=== PATIENT | male | born 1935 | race Caucasian/White ===

== ENCOUNTER 2018-01-05 15:07 | Observation (INO) | payer OTHER ==
[~2018-01-05] VITALS: Ht 182.9 cm; Wt 100.5 kg
[2018-01-05 16:03] LABS: BASOPHIL (%) 0.3 % (0-1); EOSINOPHIL (%) 0.9 % (0-5); EOSINOPHIL COUNT 0.1 K/uL (0-0.3); HEMATOCRIT 41.4 % (38.0-50.0); HEMOGLOBIN 13.8 G/DL (12.5-16.6); IMMATURE GRANULOCYTE (%) 0.7 % (0.0-0.7); LYMPHOCYTE (%) 12.2 % (15-42); LYMPHOCYTE COUNT 1.4 K/uL (1.0-2.8); MCH 30.1 PG (29.0-34.0); MCHC 33.3 G/DL (30.0-36.0); MCV 90.2 FL (86-99); MONOCYTE (%) 8.6 % (3-12); NEUTROPHIL (%) 77.3 % (45-76); NEUTROPHIL COUNT 8.8 K/uL (1.8-6.4); PLATELET COUNT 329 K/uL (156-360); RBC DIS.WIDTH-CV 14.9 % (11.8-14.6); RBC DIS.WIDTH-SD 49.1 % (39-53); RED BLOOD COUNT 4.59 M/uL (4.00-5.50); WHITE BLOOD COUNT 11.4 K/uL (4.1-10.2)
[2018-01-05 16:10] LABS: INTER. NORMALIZED RATIO 2.3
[2018-01-05 16:12] LABS: CHLORIDE 103 mEq/L (99-109); POTASSIUM 4.5 mEq/L (3.7-5.4); SODIUM 139 mEq/L (136-147)
[2018-01-05 16:13] LABS: MAGNESIUM 2.2 mg/dL (1.3-2.7); PTT 37.1 SEC (25-37)
[2018-01-05 16:14] LABS: GLUCOSE 122 mg/dL (70-99)
[2018-01-05 16:18] LABS: CREATININE 1.2 mg/dL (0.6-1.3); GFR ESTIMATE (CALCULATED) > 59 mL/min/ (58.99-99999)
[2018-01-05 16:19] LABS: UREA NITROGEN (BUN) 29 mg/dL (9-23)
[2018-01-05 16:26] LABS: TROP-I INTERPRETATION NEGATIVE; TROPONIN-I < 0.01 ng/mL (0.0-0.30)
[2018-01-05 17:03] LABS: APPEARANCE CLOUDY ((CLEAR)); BILIRUBIN NEGATIVE; BLOOD LARGE; COLOR AMBER ((YELLOW)); GLUCOSE (STRIP) NEGATIVE; KETONES NEGATIVE; LEUKOCYTES LARGE; NITRITE NEGATIVE; PROTEIN (STRIP) 100; SPECIFIC GRAVITY 1.017 (1.000-1.030)
[2018-01-05 17:51] LABS: RED BLOOD CELLS TNTC /HPF (0-5); WHITE BLOOD CELLS TNTC /HPF (0-5)
[2018-01-05 17:52] LABS: EPITHELIAL CELLS NONE SEEN /HPF; MUCUS NONE SEEN /LPF; UCUL ADDED? YES
[2018-01-05] MEDS ORDERED: COLACE100 MG PO (19:52)
[2018-01-05] MEDS ORDERED: AMLODIPINE BESYL5 MG PO (19:52)
[2018-01-05] MEDS ORDERED: FLOMAX0.4 MG PO (19:52)
[2018-01-05] MEDS ORDERED: LISINOPRIL20 MG PO (19:53)
[2018-01-05] MEDS ORDERED: METFORMIN HCL500 MG PO (19:53)
[2018-01-05] MEDS ORDERED: AMARYL4 MG PO (19:53)
[2018-01-05] MEDS ORDERED: MIRALAX17 GM PO (19:53)
[2018-01-05] MEDS ORDERED: VITAMIN B-12500 MC5 SL (19:54)
[2018-01-05] MEDS ORDERED: DAILY VALUE1 EACH PO (19:54)
[2018-01-05] MEDS ORDERED: CATAPRES0.2 MG PO (19:54)
[2018-01-05] MEDS ORDERED: AMARYL2 MG PO (19:55)
[2018-01-05] MEDS ORDERED: COUMADIN5 MG PO (19:55)
[2018-01-05] MEDS ORDERED: LIPITOR80 MG PO (19:55)
[2018-01-05] MEDS ORDERED: PHILLIPS'400 MG/5 M PO (19:56)
[2018-01-05] MEDS ORDERED: DULCOLAX10 MG PR (19:56)
[2018-01-05] MEDS ORDERED: FLEET ENEMA-AD118 ML PR (19:56)
[2018-01-05] MEDS ORDERED: SINEMET 25-1001 EACH PO (19:57)
[2018-01-05] MEDS ORDERED: FLONASE16 G1 BOTH NARES (19:57)
[2018-01-05] MEDS ORDERED: TYLENOL EXTRA500 MG PO (19:58)
[2018-01-05 21:41] VITALS: BP 144/65
[2018-01-05 23:50] VITALS: BP 161/83
[2018-01-06] VITALS (7 sets, daily range): BP systolic 83–141; BP diastolic 46–65
[2018-01-06 05:52] LABS: INTER. NORMALIZED RATIO 2.4
[2018-01-06 05:53] LABS: BASOPHIL (%) 0.3 % (0-1); EOSINOPHIL (%) 1.7 % (0-5); EOSINOPHIL COUNT 0.2 K/uL (0-0.3); HEMATOCRIT 37.7 % (38.0-50.0); HEMOGLOBIN 12.1 G/DL (12.5-16.6); IMMATURE GRANULOCYTE (%) 0.6 % (0.0-0.7); LYMPHOCYTE (%) 20.1 % (15-42); LYMPHOCYTE COUNT 2.1 K/uL (1.0-2.8); MCH 29.3 PG (29.0-34.0); MCHC 32.1 G/DL (30.0-36.0); MCV 91.3 FL (86-99); MONOCYTE (%) 9.4 % (3-12); NEUTROPHIL (%) 67.9 % (45-76); PLATELET COUNT 312 K/uL (156-360); RBC DIS.WIDTH-SD 50.4 % (39-53); RED BLOOD COUNT 4.13 M/uL (4.00-5.50); WHITE BLOOD COUNT 10.3 K/uL (4.1-10.2)
[2018-01-06 06:12] LABS: CHLORIDE 105 MEQ/L (99-109); CREATININE 1.3 MG/DL (0.6-1.3); GFR ESTIMATE (CALCULATED) 56 mL/min/ (58.99-99999); GLUCOSE 128 mg/dL (70-99); POTASSIUM 4.6 MEQ/L (3.7-5.4); SODIUM 140 MEQ/L (136-147); UREA NITROGEN (BUN) 34 mg/dL (9-23)
[2018-01-07 03:32] VITALS: BP 104/52
[2018-01-07 06:26] LABS: INTER. NORMALIZED RATIO 3.4
[2018-01-07 07:46] VITALS: BP 134/63
[2018-01-07 11:40] VITALS: BP 140/66
[2018-01-07 17:05] VITALS: BP 155/80
[2018-01-07 19:26] VITALS: BP 163/87
[2018-01-08 00:31] VITALS: BP 136/61
[2018-01-08 04:45] VITALS: BP 161/73
[2018-01-08 06:39] LABS: INTER. NORMALIZED RATIO 3.3
[2018-01-08 07:52] VITALS: BP 167/72
[2018-01-08 11:55] VITALS: BP 136/62
[2018-01-08 18:30] VITALS: BP 153/70
[2018-01-09 03:56] VITALS: BP 146/65
[2018-01-09 05:57] LABS: INTER. NORMALIZED RATIO 2.6
[2018-01-09 08:31] VITALS: BP 153/87
[2018-01-09 11:02] VITALS: BP 163/79
[2018-01-09] MEDS ORDERED: CEPHALEXIN500 M1 PO (14:55)
[2018-01-09 15:37] VITALS: BP 174/75
== END 2018-01-09 17:34 ==
LOC: EME 15:07 → EDOF 19:56 → 5WEST 19:56 → ENRESERV 20:00 → 5WEST 21:28
PROVIDERS: Emergency Medicine; Internal Medicine; Physician Assistant
DX: N39.0 Urinary tract infection, site not specified (principal); G93.41 Metabolic encephalopathy; I69.354 Hemiplegia and hemiparesis following cerebral infarction affecting left non-dominant side; G20 Parkinson's disease; E11.9 Type 2 diabetes mellitus without complications; I25.10 Atherosclerotic heart disease of native coronary artery without angina pectoris; Z95.5 Presence of coronary angioplasty implant and graft; I10 Essential (primary) hypertension; E78.5 Hyperlipidemia, unspecified; N40.0 Benign prostatic hyperplasia without lower urinary tract symptoms; Z79.01 Long term (current) use of anticoagulants; Z79.84 Long term (current) use of oral hypoglycemic drugs
CPT/HCPCS: 70450; 80048; 80048 91; 81003; 82948; 83735; 84484; 85025; 85025 91; 85610; 85730; 87040; 87077; 87086; 87186; 93005; 99281; 99285; G0378; J0692; J1815; J2405; J7030

== ENCOUNTER 2018-04-19 21:09 | Inpatient (IN) | payer OTHER ==
[~2018-04-19] VITALS: Ht 2926.1 cm; Wt 93.2 kg
[~2018-04-19 21:09] MED LIST: AMARYL2 MG PO; AMARYL4 MG PO; AMLODIPINE BESYL5 MG PO; CATAPRES0.2 MG PO; CEPHALEXIN500 M1 PO; COLACE100 MG PO; COUMADIN5 MG PO; DAILY VALUE1 EACH PO; DULCOLAX10 MG PR; FLEET ENEMA-AD118 ML PR; FLOMAX0.4 MG PO; FLONASE16 G1 BOTH NARES; LIPITOR80 MG PO; LISINOPRIL20 MG PO; METFORMIN HCL500 MG PO; MIRALAX17 GM PO; PHILLIPS'400 MG/5 M PO; SINEMET 25-1001 EACH PO; TYLENOL REGULA325 MG PO; VITAMIN B-12500 MC5 SL
[2018-04-19 21:56] LABS: APPEARANCE CLOUDY ((CLEAR)); BILIRUBIN NEGATIVE; BLOOD SMALL; COLOR AMBER ((YELLOW)); GLUCOSE (STRIP) NEGATIVE; KETONES 5; LEUKOCYTES LARGE; NITRITE NEGATIVE; PROTEIN (STRIP) 30; SPECIFIC GRAVITY 1.018 (1.000-1.030); UROBILINOGEN 0.2 MG/DL (0.2-1.0)
[2018-04-19 22:14] LABS: BACTERIA 3+ /HPF; EPITHELIAL CELLS 2+ /HPF; MUCUS NONE SEEN /LPF; RED BLOOD CELLS 0-5 /HPF (0-5); UCUL ADDED? YES; WHITE BLOOD CELLS TNTC /HPF (0-5)
[2018-04-19 22:27] LABS: ALBUMIN 2.3 g/dL (3.2-4.8); CHLORIDE 116 mEq/L (99-109); POTASSIUM 3.3 mEq/L (3.7-5.4); SODIUM 152 mEq/L (136-147)
[2018-04-19 22:28] LABS: MAGNESIUM 1.9 mg/dL (1.3-2.7)
[2018-04-19 22:30] LABS: GLUCOSE 240 mg/dL (70-99); TOTAL PROTEIN 5.6 g/dL (6.4-8.3)
[2018-04-19 22:32] LABS: TOTAL BILIRUBIN 0.5 mg/dL (0.0-1.0)
[2018-04-19 22:33] LABS: ALKALINE PHOSPHATASE 136 IU/L (3-129); GFR ESTIMATE (CALCULATED) 21 mL/min/ (58.99-99999)
[2018-04-19 22:34] LABS: BASOPHIL (%) 0.3 % (0-1); BASOPHIL COUNT 0.1 K/uL (0-0.1); EOSINOPHIL (%) 0 % (0-5); HEMOGLOBIN 11.9 G/DL (12.5-16.6); IMMATURE GRANULOCYTE (%) 1.8 % (0.0-0.7); LYMPHOCYTE (%) 4.4 % (15-42); LYMPHOCYTE COUNT 1.5 K/uL (1.0-2.8); MCH 29.8 PG (29.0-34.0); MCHC 33.1 G/DL (30.0-36.0); MONOCYTE (%) 3.7 % (3-12); MONOCYTE COUNT 1.3 K/uL (0-0.8); NEUTROPHIL (%) 89.8 % (45-76); NEUTROPHIL COUNT 31.1 K/uL (1.8-6.4); NRBC (%) 0.1 /100 WBC (0-0); PLATELET COUNT 258 K/uL (156-360); RBC DIS.WIDTH-CV 16.2 % (11.8-14.6); RBC DIS.WIDTH-SD 53.6 % (39-53)
[2018-04-19 22:35] LABS: AST (GOT) 29 IU/L (2-34); UREA NITROGEN (BUN) 46 mg/dL (9-23)
[2018-04-19 22:36] LABS: ALT (GPT) 8 IU/L (3-49)
[2018-04-19 22:37] LABS: LIPASE 8 U/L (1.0-51.0)
[2018-04-19 22:38] LABS: WHITE BLOOD COUNT 34.7 K/uL (4.1-10.2)
[2018-04-19 22:39] LABS: TROP-I INTERPRETATION NEGATIVE; TROPONIN-I 0.07 ng/mL (0.0-0.30)
[2018-04-19] MEDS ORDERED: OMEPRAZOLE40 M1 PO ×2 (22:41)
[2018-04-19] MEDS ORDERED: OMEPRAZOLE20 MG PO (22:42)
[2018-04-19] MEDS ORDERED: GABAPENTIN100 MG PO (22:46)
[2018-04-19] MEDS ORDERED: MIRTAZAPINE7.5 MG PO (22:47)
[2018-04-19] MEDS ORDERED: NYSTATIN100000 UN1 PO (22:48)
[2018-04-19] MEDS ORDERED: SENNA PLUS TAB1 EACH PO (22:49)
[2018-04-19 22:51] LABS: INTER. NORMALIZED RATIO 1.4
[2018-04-19] MEDS ORDERED: LIDOCAINE PAIN1 EACH TP (22:51)
[2018-04-19] MEDS ORDERED: PLAVIX75 MG PO (22:51)
[2018-04-19] MEDS ORDERED: IRON325 M1 PO (22:52)
[2018-04-19] MEDS ORDERED: ZOFRAN4 MG PO (22:53)
[2018-04-20] VITALS (8 sets, daily range): BP systolic 67–113; BP diastolic 41–63
[2018-04-20 05:32] LABS: INTER. NORMALIZED RATIO 1.4
[2018-04-20 05:38] LABS: HEMOGLOBIN 10.6 G/DL (12.5-16.6); MCH 28.6 PG (29.0-34.0); MCHC 31.2 G/DL (30.0-36.0); MCV 91.9 FL (86-99); PLATELET COUNT 214 K/uL (156-360); RBC DIS.WIDTH-CV 16.5 % (11.8-14.6); RBC DIS.WIDTH-SD 56.4 % (39-53)
[2018-04-20 05:40] LABS: WHITE BLOOD COUNT 31.3 K/uL (4.1-10.2)
[2018-04-20 05:51] LABS: PLAT.SUFFICIENCY ADEQUATE
[2018-04-20 06:11] LABS: ALBUMIN 1.8 G/DL (3.2-4.8); ALKALINE PHOSPHATASE 114 IU/L (3-129); ALT (GPT) 7 IU/L (3-49); AST (GOT) 23 IU/L (2-34); CHLORIDE 120 MEQ/L (99-109); GLUCOSE 200 mg/dL (70-99); POTASSIUM 3.2 MEQ/L (3.7-5.4); SODIUM 154 MEQ/L (136-147); TOTAL BILIRUBIN 0.4 MG/DL (0.0-1.0); TOTAL PROTEIN 4.4 G/DL (6.4-8.3); UREA NITROGEN (BUN) 43 mg/dL (9-23)
[2018-04-20 06:26] LABS: CREATININE 2.3 MG/DL (0.6-1.3); GFR ESTIMATE (CALCULATED) 29 mL/min/ (58.99-99999)
[2018-04-20 21:04] LABS: PCO2 35 mm Hg (35-45); PO2 138 mm Hg (80-100); SITE ALINE; pH 7.34 (7.35-7.45)
[2018-04-20 21:05] LABS: BASE EXCESS -6.2 mEq/L (-3 to +3); BICARBONATE 18.9 mEq/L (22-26); CARBOXY HGB 1.2 % (0-5); METHEMOGLOBIN 1.3 % (0-1.5)
[2018-04-20 22:51] LABS: HEMOGLOBIN 9.4 G/DL (12.5-16.6); MCH 29.6 PG (29.0-34.0); MCHC 32.4 G/DL (30.0-36.0); MCV 91.2 FL (86-99); PLATELET COUNT 167 K/uL (156-360); RBC DIS.WIDTH-CV 16.7 % (11.8-14.6); RBC DIS.WIDTH-SD 55.8 % (39-53); RED BLOOD COUNT 3.18 M/uL (4.00-5.50); WHITE BLOOD COUNT 27.5 K/uL (4.1-10.2)
[2018-04-20 22:58] LABS: CHLORIDE 127 mEq/L (99-109); POTASSIUM 3.1 mEq/L (3.7-5.4); SODIUM 151 mEq/L (136-147)
[2018-04-20 23:00] LABS: GLUCOSE 142 mg/dL (70-99)
[2018-04-20 23:04] LABS: CREATININE 1.9 mg/dL (0.6-1.3); GFR ESTIMATE (CALCULATED) 36 mL/min/ (58.99-99999); PHOSPHORUS 1.9 mg/dL (2.5-4.9)
[2018-04-20 23:05] LABS: UREA NITROGEN (BUN) 42 mg/dL (9-23)
[2018-04-20 23:18] LABS: MAGNESIUM 1.5 mg/dL (1.3-2.7)
[2018-04-20 23:47] LABS: INTER. NORMALIZED RATIO 1.4
[2018-04-20 23:49] LABS: PTT 38.9 SEC (25-37)
[2018-04-21] VITALS (20 sets, daily range): BP systolic 68–123; BP diastolic 43–65
[2018-04-21 01:01] LABS: ABS NEUTROPHIL COUNT 26.8; ANISOCYTOSIS 1+; BAND NEUTROPHILS 4.8 % (0-8.0); BURR CELLS 3+; EOSINOPHIL ABS CT 0; LYMPHOCYTES 1.7 % (15.0-45.0); MACROCYTES 1+; MONOCYTES 0.9 % (0-9.0); PLATELET CLUMPS PRESENT - PLATELET COUNT APPEARS DECREASED; POIKILOCYTOSIS 3+; SEG.NEUTROPHILS 92.6 % (46.0-76.0); TOXIC GRANULATION 2+
[2018-04-21 06:46] LABS: HEMOGLOBIN 9.3 G/DL (12.5-16.6); MCH 29.2 PG (29.0-34.0); MCHC 32.1 G/DL (30.0-36.0); MCV 90.9 FL (86-99); NRBC (%) 0.1 /100 WBC (0-0); PLATELET COUNT 163 K/uL (156-360); RBC DIS.WIDTH-CV 16.7 % (11.8-14.6); RBC DIS.WIDTH-SD 55.8 % (39-53); RED BLOOD COUNT 3.19 M/uL (4.00-5.50); WHITE BLOOD COUNT 23.8 K/uL (4.1-10.2)
[2018-04-21 06:55] LABS: INTER. NORMALIZED RATIO 1.3
[2018-04-21 07:17] LABS: ABS NEUTROPHIL COUNT 23.1; ANISOCYTOSIS 1+; BURR CELLS 3+; EOSINOPHIL ABS CT 0; PLAT.SUFFICIENCY ADEQUATE; POIKILOCYTOSIS 3+
[2018-04-21 09:02] LABS: CHLORIDE 123 MEQ/L (99-109); CREATININE 1.8 MG/DL (0.6-1.3); GFR ESTIMATE (CALCULATED) 38 mL/min/ (58.99-99999); GLUCOSE 183 mg/dL (70-99); POTASSIUM 3.3 MEQ/L (3.7-5.4); SODIUM 151 MEQ/L (136-147); UREA NITROGEN (BUN) 38 mg/dL (9-23)
[2018-04-21 09:04] LABS: VANCOMYCIN, TROUGH 9.4 MCG/ML (10-20)
[2018-04-21 10:58] LABS: MAGNESIUM 1.9 mg/dl (1.3-2.7); PHOSPHORUS 3.5 mg/dL (2.5-4.9)
[2018-04-22] VITALS (11 sets, daily range): BP systolic 93–122; BP diastolic 45–78
[2018-04-22 05:47] LABS: INTER. NORMALIZED RATIO 1.4
[2018-04-22 10:38] LABS: BASOPHIL (%) 0.1 % (0-1); EOSINOPHIL (%) 0.6 % (0-5); EOSINOPHIL COUNT 0.1 K/uL (0-0.3); HEMATOCRIT 32.2 % (38.0-50.0); HEMOGLOBIN 10.5 G/DL (12.5-16.6); IMMATURE GRANULOCYTE (%) 2.2 % (0.0-0.7); LYMPHOCYTE COUNT 1.4 K/uL (1.0-2.8); MCH 29.1 PG (29.0-34.0); MCHC 32.6 G/DL (30.0-36.0); MCV 89.2 FL (86-99); MONOCYTE (%) 1.4 % (3-12); MONOCYTE COUNT 0.3 K/uL (0-0.8); NEUTROPHIL (%) 88.7 % (45-76); NEUTROPHIL COUNT 17.2 K/uL (1.8-6.4); PLATELET COUNT 162 K/uL (156-360); RBC DIS.WIDTH-CV 16.6 % (11.8-14.6); RBC DIS.WIDTH-SD 53.9 % (39-53); RED BLOOD COUNT 3.61 M/uL (4.00-5.50); WHITE BLOOD COUNT 19.4 K/uL (4.1-10.2)
[2018-04-22 11:27] LABS: ALBUMIN 1.7 G/DL (3.2-4.8); ALKALINE PHOSPHATASE 114 IU/L (3-129); ALT (GPT) 11 IU/L (3-49); AST (GOT) 31 IU/L (2-34); CHLORIDE 117 MEQ/L (99-109); CREATININE 1.5 MG/DL (0.6-1.3); GFR ESTIMATE (CALCULATED) 47 mL/min/ (58.99-99999); GLUCOSE 192 mg/dL (70-99); MAGNESIUM 1.8 mg/dl (1.3-2.7); POTASSIUM 3.2 MEQ/L (3.7-5.4); SODIUM 151 MEQ/L (136-147); TOTAL BILIRUBIN 0.4 MG/DL (0.0-1.0); TOTAL PROTEIN 4.6 G/DL (6.4-8.3); UREA NITROGEN (BUN) 27 mg/dL (9-23)
[2018-04-22 11:28] LABS: HIGH-SENS C-REACTIVE PROTEIN > 8.00 MG/DL (0.02-0.20); PHOSPHORUS 1.9 mg/dL (2.5-4.9)
[2018-04-23 03:29] VITALS: BP 119/56
[2018-04-23 05:52] LABS: HEMOGLOBIN 9.7 G/DL (12.5-16.6); MCH 28.9 PG (29.0-34.0); MCHC 32.3 G/DL (30.0-36.0); MCV 89.3 FL (86-99); PLATELET COUNT 169 K/uL (156-360); RBC DIS.WIDTH-CV 16.6 % (11.8-14.6); RBC DIS.WIDTH-SD 54.3 % (39-53); RED BLOOD COUNT 3.36 M/uL (4.00-5.50); WHITE BLOOD COUNT 16.7 K/uL (4.1-10.2)
[2018-04-23 05:56] LABS: INTER. NORMALIZED RATIO 1.4
[2018-04-23 06:13] LABS: CHLORIDE 116 MEQ/L (99-109); CREATININE 1.4 MG/DL (0.6-1.3); GFR ESTIMATE (CALCULATED) 51 mL/min/ (58.99-99999); SODIUM 151 MEQ/L (136-147); UREA NITROGEN (BUN) 24 mg/dL (9-23)
[2018-04-23 06:15] LABS: GLUCOSE 111 mg/dL (70-99)
[2018-04-23 07:35] VITALS: BP 130/60
[2018-04-23 11:03] VITALS: BP 123/59
[2018-04-23 16:41] VITALS: BP 124/53
[2018-04-23 19:05] VITALS: BP 130/60
[2018-04-23 23:49] VITALS: BP 109/58
[2018-04-24 03:58] VITALS: BP 109/55
[2018-04-24 05:33] LABS: BASOPHIL (%) 0.1 % (0-1); EOSINOPHIL COUNT 0.2 K/uL (0-0.3); HEMATOCRIT 26.9 % (38.0-50.0); HEMOGLOBIN 8.6 G/DL (12.5-16.6); IMMATURE GRANULOCYTE (%) 1.3 % (0.0-0.7); LYMPHOCYTE (%) 11.8 % (15-42); LYMPHOCYTE COUNT 2.1 K/uL (1.0-2.8); MCH 28.6 PG (29.0-34.0); MCV 89.4 FL (86-99); MONOCYTE (%) 2.7 % (3-12); MONOCYTE COUNT 0.5 K/uL (0-0.8); NEUTROPHIL (%) 83.1 % (45-76); NEUTROPHIL COUNT 14.7 K/uL (1.8-6.4); PLATELET COUNT 171 K/uL (156-360); RBC DIS.WIDTH-CV 16.8 % (11.8-14.6); RBC DIS.WIDTH-SD 54.6 % (39-53); RED BLOOD COUNT 3.01 M/uL (4.00-5.50); WHITE BLOOD COUNT 17.6 K/uL (4.1-10.2)
[2018-04-24 05:58] LABS: INTER. NORMALIZED RATIO 1.4
[2018-04-24 06:09] LABS: ALBUMIN 1.5 G/DL (3.2-4.8); ALT (GPT) 3 IU/L (3-49); AST (GOT) 29 IU/L (2-34); CHLORIDE 117 MEQ/L (99-109); CREATININE 1.4 MG/DL (0.6-1.3); GFR ESTIMATE (CALCULATED) 51 mL/min/ (58.99-99999); GLUCOSE 108 mg/dL (70-99); POTASSIUM 3.1 MEQ/L (3.7-5.4); SODIUM 148 MEQ/L (136-147); TOTAL BILIRUBIN 0.4 MG/DL (0.0-1.0); UREA NITROGEN (BUN) 19 mg/dL (9-23)
[2018-04-24 06:10] LABS: ALKALINE PHOSPHATASE 175 IU/L (3-129); TOTAL PROTEIN 3.8 G/DL (6.4-8.3)
[2018-04-24 07:46] VITALS: BP 113/54
[2018-04-24 11:28] VITALS: BP 131/62
[2018-04-24 15:11] VITALS: BP 148/65
[2018-04-24 20:42] VITALS: BP 118/60
[2018-04-24 23:57] VITALS: BP 98/59
[2018-04-25 03:27] VITALS: BP 129/58
[2018-04-25 05:47] LABS: BASOPHIL (%) 0.2 % (0-1); EOSINOPHIL (%) 1.2 % (0-5); EOSINOPHIL COUNT 0.2 K/uL (0-0.3); HEMATOCRIT 27.1 % (38.0-50.0); HEMOGLOBIN 8.8 G/DL (12.5-16.6); IMMATURE GRANULOCYTE (%) 1.5 % (0.0-0.7); LYMPHOCYTE (%) 9.3 % (15-42); LYMPHOCYTE COUNT 1.7 K/uL (1.0-2.8); MCH 29.2 PG (29.0-34.0); MCHC 32.5 G/DL (30.0-36.0); MONOCYTE (%) 2.6 % (3-12); MONOCYTE COUNT 0.5 K/uL (0-0.8); NEUTROPHIL (%) 85.2 % (45-76); NEUTROPHIL COUNT 15.7 K/uL (1.8-6.4); PLATELET COUNT 196 K/uL (156-360); RBC DIS.WIDTH-SD 55.6 % (39-53); RED BLOOD COUNT 3.01 M/uL (4.00-5.50); WHITE BLOOD COUNT 18.4 K/uL (4.1-10.2)
[2018-04-25 06:33] LABS: INTER. NORMALIZED RATIO 1.4
[2018-04-25 06:52] LABS: CHLORIDE 117 MEQ/L (99-109); CREATININE 1.4 MG/DL (0.6-1.3); GFR ESTIMATE (CALCULATED) 51 mL/min/ (58.99-99999); GLUCOSE 129 mg/dL (70-99); SODIUM 149 MEQ/L (136-147); UREA NITROGEN (BUN) 17 mg/dL (9-23)
[2018-04-25 08:03] VITALS: BP 122/56
[2018-04-25 11:51] VITALS: BP 108/54
[2018-04-25 15:50] VITALS: BP 126/68
[2018-04-25 20:41] VITALS: BP 129/63
[2018-04-26] VITALS (8 sets, daily range): BP systolic 102–129; BP diastolic 50–66
[2018-04-26 05:46] LABS: BASOPHIL (%) 0.1 % (0-1); EOSINOPHIL (%) 1.9 % (0-5); EOSINOPHIL COUNT 0.3 K/uL (0-0.3); HEMATOCRIT 26.1 % (38.0-50.0); HEMOGLOBIN 8.5 G/DL (12.5-16.6); IMMATURE GRANULOCYTE (%) 1.1 % (0.0-0.7); LYMPHOCYTE COUNT 1.8 K/uL (1.0-2.8); MCH 29.2 PG (29.0-34.0); MCHC 32.6 G/DL (30.0-36.0); MCV 89.7 FL (86-99); MONOCYTE (%) 2.7 % (3-12); MONOCYTE COUNT 0.4 K/uL (0-0.8); NEUTROPHIL (%) 82.2 % (45-76); NEUTROPHIL COUNT 12.4 K/uL (1.8-6.4); PLATELET COUNT 226 K/uL (156-360); RBC DIS.WIDTH-CV 17.1 % (11.8-14.6); RBC DIS.WIDTH-SD 55.8 % (39-53); RED BLOOD COUNT 2.91 M/uL (4.00-5.50); WHITE BLOOD COUNT 15.1 K/uL (4.1-10.2)
[2018-04-26 05:55] LABS: INTER. NORMALIZED RATIO 1.4
[2018-04-26 06:23] LABS: ALBUMIN 1.5 G/DL (3.2-4.8); ALKALINE PHOSPHATASE 133 IU/L (3-129); ALT (GPT) 5 IU/L (3-49); AST (GOT) 33 IU/L (2-34); CHLORIDE 115 MEQ/L (99-109); CREATININE 1.3 MG/DL (0.6-1.3); GFR ESTIMATE (CALCULATED) 56 mL/min/ (58.99-99999); GLUCOSE 127 mg/dL (70-99); POTASSIUM 3.5 MEQ/L (3.7-5.4); SODIUM 146 MEQ/L (136-147); TOTAL BILIRUBIN 0.4 MG/DL (0.0-1.0); TOTAL PROTEIN 4.3 G/DL (6.4-8.3); UREA NITROGEN (BUN) 14 mg/dL (9-23)
[2018-04-27 05:59] LABS: HEMOGLOBIN 8.5 G/DL (12.5-16.6); MCH 28.7 PG (29.0-34.0); MCHC 31.5 G/DL (30.0-36.0); MCV 91.2 FL (86-99); PLATELET COUNT 258 K/uL (156-360); RBC DIS.WIDTH-CV 16.8 % (11.8-14.6); RBC DIS.WIDTH-SD 55.9 % (39-53); RED BLOOD COUNT 2.96 M/uL (4.00-5.50); WHITE BLOOD COUNT 14.6 K/uL (4.1-10.2)
[2018-04-27 06:01] LABS: INTER. NORMALIZED RATIO 1.4
[2018-04-27 06:06] VITALS: BP 136/62
[2018-04-27 07:45] VITALS: BP 136/63
[2018-04-27 07:46] LABS: CHLORIDE 113 MEQ/L (99-109); CREATININE 1.3 MG/DL (0.6-1.3); GFR ESTIMATE (CALCULATED) 56 mL/min/ (58.99-99999); GLUCOSE 101 mg/dL (70-99); POTASSIUM 3.5 MEQ/L (3.7-5.4); SODIUM 146 MEQ/L (136-147); UREA NITROGEN (BUN) 12 mg/dL (9-23)
[2018-04-27 11:34] VITALS: BP 142/62
[2018-04-27 16:53] VITALS: BP 143/70
[2018-04-27 19:09] VITALS: BP 118/57
[2018-04-27 23:35] VITALS: BP 125/59
[2018-04-28 04:31] VITALS: BP 130/58
[2018-04-28 06:42] LABS: BASOPHIL (%) 0.3 % (0-1); EOSINOPHIL (%) 1.3 % (0-5); EOSINOPHIL COUNT 0.2 K/uL (0-0.3); HEMATOCRIT 25.9 % (38.0-50.0); HEMOGLOBIN 8.2 G/DL (12.5-16.6); IMMATURE GRANULOCYTE (%) 1.2 % (0.0-0.7); LYMPHOCYTE (%) 12.3 % (15-42); LYMPHOCYTE COUNT 1.8 K/uL (1.0-2.8); MCH 28.5 PG (29.0-34.0); MCHC 31.7 G/DL (30.0-36.0); MCV 89.9 FL (86-99); MONOCYTE (%) 3.6 % (3-12); MONOCYTE COUNT 0.5 K/uL (0-0.8); NEUTROPHIL (%) 81.3 % (45-76); NEUTROPHIL COUNT 11.7 K/uL (1.8-6.4); PLATELET COUNT 303 K/uL (156-360); RBC DIS.WIDTH-CV 16.7 % (11.8-14.6); RBC DIS.WIDTH-SD 54.3 % (39-53); RED BLOOD COUNT 2.88 M/uL (4.00-5.50); WHITE BLOOD COUNT 14.4 K/uL (4.1-10.2)
[2018-04-28 07:00] LABS: CHLORIDE 109 MEQ/L (99-109); CREATININE 1.3 MG/DL (0.6-1.3); GFR ESTIMATE (CALCULATED) 56 mL/min/ (58.99-99999); GLUCOSE 72 mg/dL (70-99); POTASSIUM 3.9 MEQ/L (3.7-5.4); SODIUM 144 MEQ/L (136-147); UREA NITROGEN (BUN) 11 mg/dL (9-23)
[2018-04-28 09:22] VITALS: BP 133/64
[2018-04-28 11:44] VITALS: BP 158/74
[2018-04-28 16:23] VITALS: BP 139/66
[2018-04-28 19:43] VITALS: BP 138/72
[2018-04-28 23:19] VITALS: BP 134/62
[2018-04-29] VITALS (7 sets, daily range): BP systolic 130–189; BP diastolic 62–84
[2018-04-29 05:15] LABS: BASOPHIL (%) 0.2 % (0-1); EOSINOPHIL (%) 0.9 % (0-5); EOSINOPHIL COUNT 0.1 K/uL (0-0.3); HEMATOCRIT 24.9 % (38.0-50.0); IMMATURE GRANULOCYTE (%) 0.7 % (0.0-0.7); LYMPHOCYTE (%) 11.5 % (15-42); LYMPHOCYTE COUNT 1.3 K/uL (1.0-2.8); MCHC 32.1 G/DL (30.0-36.0); MCV 90.2 FL (86-99); MONOCYTE (%) 3.9 % (3-12); MONOCYTE COUNT 0.5 K/uL (0-0.8); NEUTROPHIL (%) 82.8 % (45-76); NEUTROPHIL COUNT 9.5 K/uL (1.8-6.4); PLATELET COUNT 318 K/uL (156-360); RBC DIS.WIDTH-CV 16.6 % (11.8-14.6); RBC DIS.WIDTH-SD 54.6 % (39-53); RED BLOOD COUNT 2.76 M/uL (4.00-5.50); WHITE BLOOD COUNT 11.5 K/uL (4.1-10.2)
[2018-04-29 05:43] LABS: TROP-I INTERPRETATION NEGATIVE; TROPONIN-I 0.01 ng/mL (0.0-0.30)
[2018-04-29 06:06] LABS: CHLORIDE 107 MEQ/L (99-109); CREATININE 1.2 MG/DL (0.6-1.3); GFR ESTIMATE (CALCULATED) > 59 mL/min/ (58.99-99999); POTASSIUM 3.7 MEQ/L (3.7-5.4); SODIUM 143 MEQ/L (136-147); UREA NITROGEN (BUN) 10 mg/dL (9-23)
[2018-04-29 06:15] LABS: GLUCOSE 100 mg/dL (70-99)
[2018-04-29 13:51] LABS: TROP-I INTERPRETATION NEGATIVE; TROPONIN-I < 0.01 ng/mL (0.0-0.30)
[2018-04-29 19:22] LABS: TROP-I INTERPRETATION NEGATIVE; TROPONIN-I 0.01 ng/mL (0.0-0.30)
[2018-04-30 03:48] VITALS: BP 133/71
[2018-04-30 07:02] LABS: BASOPHIL (%) 0.3 % (0-1); EOSINOPHIL (%) 0.8 % (0-5); EOSINOPHIL COUNT 0.1 K/uL (0-0.3); HEMATOCRIT 30.3 % (38.0-50.0); HEMOGLOBIN 9.7 G/DL (12.5-16.6); IMMATURE GRANULOCYTE (%) 0.8 % (0.0-0.7); LYMPHOCYTE (%) 9.3 % (15-42); LYMPHOCYTE COUNT 1.1 K/uL (1.0-2.8); MCH 28.7 PG (29.0-34.0); MCV 89.6 FL (86-99); MONOCYTE (%) 5.3 % (3-12); MONOCYTE COUNT 0.6 K/uL (0-0.8); NEUTROPHIL (%) 83.5 % (45-76); RBC DIS.WIDTH-CV 16.8 % (11.8-14.6); RBC DIS.WIDTH-SD 55.1 % (39-53)
[2018-04-30 07:17] LABS: PLATELET COUNT 435 K/uL (156-360); RED BLOOD COUNT 3.38 M/uL (4.00-5.50)
[2018-04-30 07:28] VITALS: BP 132/68
[2018-04-30 07:40] LABS: CHLORIDE 102 MEQ/L (99-109); CREATININE 1.2 MG/DL (0.6-1.3); GFR ESTIMATE (CALCULATED) > 59 mL/min/ (58.99-99999); GLUCOSE 89 mg/dL (70-99); POTASSIUM 4.4 MEQ/L (3.7-5.4); SODIUM 142 MEQ/L (136-147); UREA NITROGEN (BUN) 10 mg/dL (9-23)
[2018-04-30 11:38] VITALS: BP 146/67
[2018-04-30 15:30] VITALS: BP 133/66
[2018-04-30 19:11] VITALS: BP 139/72
[2018-05-01 03:28] VITALS: BP 129/62
[2018-05-01 06:31] LABS: BASOPHIL (%) 0.4 % (0-1); EOSINOPHIL (%) 1.1 % (0-5); EOSINOPHIL COUNT 0.1 K/uL (0-0.3); HEMATOCRIT 28.8 % (38.0-50.0); HEMOGLOBIN 9.2 G/DL (12.5-16.6); IMMATURE GRANULOCYTE (%) 0.5 % (0.0-0.7); LYMPHOCYTE (%) 11.5 % (15-42); LYMPHOCYTE COUNT 1.3 K/uL (1.0-2.8); MCH 28.8 PG (29.0-34.0); MCHC 31.9 G/DL (30.0-36.0); MCV 90.3 FL (86-99); MONOCYTE (%) 6.7 % (3-12); MONOCYTE COUNT 0.7 K/uL (0-0.8); NEUTROPHIL (%) 79.8 % (45-76); NEUTROPHIL COUNT 8.8 K/uL (1.8-6.4); PLATELET COUNT 461 K/uL (156-360); RBC DIS.WIDTH-CV 16.7 % (11.8-14.6); RBC DIS.WIDTH-SD 54.7 % (39-53); RED BLOOD COUNT 3.19 M/uL (4.00-5.50)
[2018-05-01 07:06] LABS: ALBUMIN 2.1 G/DL (3.2-4.8); ALKALINE PHOSPHATASE 116 IU/L (3-129); ALT (GPT) 3 IU/L (3-49); AST (GOT) 20 IU/L (2-34); CHLORIDE 104 MEQ/L (99-109); CREATININE 1.1 MG/DL (0.6-1.3); GFR ESTIMATE (CALCULATED) > 59 mL/min/ (58.99-99999); GLUCOSE 115 mg/dL (70-99); POTASSIUM 4.1 MEQ/L (3.7-5.4); SODIUM 143 MEQ/L (136-147); TOTAL BILIRUBIN 0.5 MG/DL (0.0-1.0); TOTAL PROTEIN 4.7 G/DL (6.4-8.3); UREA NITROGEN (BUN) 10 mg/dL (9-23)
[2018-05-01 07:44] VITALS: BP 143/68
[2018-05-01 11:56] VITALS: BP 134/63
[2018-05-01 15:30] VITALS: BP 137/75
[2018-05-01 20:45] VITALS: BP 128/54
[2018-05-01 23:42] VITALS: BP 135/67
[2018-05-02] VITALS (7 sets, daily range): BP systolic 108–176; BP diastolic 57–89
[2018-05-03 04:49] VITALS: BP 109/53
[2018-05-03 08:25] VITALS: BP 114/56
[2018-05-03] MEDS ORDERED: CEFTIN500 MG PO (14:57)
[2018-05-03] MEDS ORDERED: LOPRESSOR25 MG PO (14:58)
[2018-05-03 15:00] VITALS: BP 105/58
== END 2018-05-03 18:15 | DRG 871 ==
LOC: EME → EDSEX 21:09 → EDBD 21:09 → EME 21:09 → EDOF 04-20 → 4WEST 04-20 → ENRESERV 04-20 00:09 → EDOF 04-20 01:55 → ENRESERV 04-20 02:05 → 4EAST 04-20 03:35 → ENRESERV 04-20 17:09 → CANRESERV 04-20 17:09 → ENRESERV 04-20 19:49 → 4WEST 04-20 20:01 → ENRESERV 04-22 13:17 → 4EAST 04-22 14:27 → ENRESERV 04-26 18:00 → 3EAST 04-26 19:42
PROVIDERS: Emergency Medicine; Internal Medicine; Physician Assistant Medical; Physician Assistant Surgical; Surgery
PROC: 02H633Z Insertion of Infusion Device into Right Atrium, Percutaneous Approach (ICD-10-PCS; principal; 2018-04-20)
PROC: 0J9B00Z Drainage of Perineum Subcutaneous Tissue and Fascia with Drainage Device, Open Approach (ICD-10-PCS; principal; 2018-04-20)
DX: A41.9 Sepsis, unspecified organism (principal); N17.9 Acute kidney failure, unspecified; K61.3 Ischiorectal abscess; I25.10 Atherosclerotic heart disease of native coronary artery without angina pectoris; E86.0 Dehydration; I50.9 Heart failure, unspecified; I11.0 Hypertensive heart disease with heart failure; N39.0 Urinary tract infection, site not specified; E11.9 Type 2 diabetes mellitus without complications; E78.5 Hyperlipidemia, unspecified; B96.4 Proteus (mirabilis) (morganii) as the cause of diseases classified elsewhere; R65.21 Severe sepsis with septic shock; B37.0 Candidal stomatitis; G20 Parkinson's disease; N40.0 Benign prostatic hyperplasia without lower urinary tract symptoms; K61.0 Anal abscess; E88.09 Other disorders of plasma-protein metabolism, not elsewhere classified; E87.0 Hyperosmolality and hypernatremia; E87.2 Acidosis; K59.00 Constipation, unspecified; Z68.30 Body mass index [BMI] 30.0-30.9, adult; I69.354 Hemiplegia and hemiparesis following cerebral infarction affecting left non-dominant side; I69.320 Aphasia following cerebral infarction; Z98.61 Coronary angioplasty status
CPT/HCPCS: 36600; 49406; 71045; 74177; 80048; 80048 91; 80053; 80202; 81003; 82330; 82948; 83605; 83690; 83735; 84100; 84145 90; 84484; 85025; 85025 GA; 85027; 85610; 85610 GA; 85730; 85730 GA; 86141; 87040; 87070; 87075; 87076; 87077; 87086; 87185; 87186; 87205; 87493; 87641; 87801; 92526 GN; 92610 GN; 93005; 94799; 99281; 99285; A6214; C1751; J0131; J0330; J0696; J1644; J1815; J1940; J2405; J2543; J3010; J3370; J3475; J3480; J7030; J7040; J7050; J7070; P9047